=== PATIENT | female | born 1945 | race Caucasian/White ===

== ENCOUNTER 2016-07-15 09:28 | Outpatient (RCR) | payer MEDICARE, OTHER ==
[2016-04-18 10:08] LABS: INR 2.8 (0.8-1.4); PROTHROMBIN TIME PATIENT 29.1 SEC (12.2-14.7)
[2016-05-15 10:30] LABS: INR 2.7 (0.8-1.4); PROTHROMBIN TIME PATIENT 28.1 SEC (12.2-14.7)
[2016-06-13 09:55] LABS: BASOPHILS % (AUTO) 0 % (0-10); EOSINOPHILS # (AUTO) 0.2 10^3/uL (0.0-0.3); EOSINOPHILS % (AUTO) 2 % (0-10); LYMPHOCYTES # (AUTO) 0.9 X 10^3 (1.0-4.0); LYMPHOCYTES % (AUTO) 12 % (12-44); MEAN CORPUSCULAR HEMOGLOBIN 28 PG (25-34); MEAN CORPUSCULAR HGB CONC 30 G/DL (32-36); MEAN CORPUSCULAR VOLUME 92 FL (80-99); MEAN PLATELET VOLUME 9.2 FL (7.4-10.4); MONOCYTES # (AUTO) 0.6 X 10^3 (0.0-1.0); MONOCYTES % (AUTO) 8 % (0-12); NEUTROPHILS # (AUTO) 5.6 X 10^3 (1.8-7.8); NEUTROPHILS % (AUTO) 77 % (42-75); PLATELET COUNT 278 10^3/uL (130-400); RED BLOOD COUNT 3.02 10^6/uL (4.35-5.85); RED CELL DISTRIBUTION WIDTH 18.7 % (10.0-14.5); WHITE BLOOD COUNT 7.3 10^3/uL (4.3-11.0)
[2016-06-13 10:08] LABS: INR 2.9 (0.8-1.4); PROTHROMBIN TIME PATIENT 29.8 SEC (12.2-14.7)
[2016-06-13 10:16] LABS: ALBUMIN 3.5 G/DL (3.2-4.5); BILIRUBIN,TOTAL 1.1 MG/DL (0.1-1.0); CREATININE SERUM 1.25 MG/DL (0.60-1.30); POTASSIUM 4.3 MMOL/L (3.6-5.0); TOTAL PROTEIN 7.2 G/DL (6.4-8.2)
[~2016-07-15 09:28] MED LIST: ATR20T PO; CLN.1T PO; CLON-378; CYANOCOBALAMIN INJ 1000 MCG/ML (CANCER CENTER) ONE; ENXP80I.8 SC; EST.625T PO; FENO134C PO; HCTZ12.5T PO; KCL20TCR PO; LISI40TA PO; LVT.05T PO; METO-272 PO; WRF2T PO
[2016-07-15] MEDS ORDERED: CYANOCOBALAMIN INJ 1000 MCG/ML (CANCER CENTER) ONE (09:33)
[2016-07-15 10:20] LABS: INR 2.6 (0.8-1.4); PROTHROMBIN TIME PATIENT 27.8 SEC (12.2-14.7)
== END 2016-07-17 | disposition home or self-care (01) ==
LOC: ONC 09:28
PROVIDERS: ATTEND Internal Medicine Hematology & Oncology
DX: D68.59 Other primary thrombophilia (principal); E53.8 Deficiency of other specified B group vitamins; N18.3 Chronic kidney disease, stage 3 (moderate); Z79.899 Other long term (current) drug therapy; Z79.01 Long term (current) use of anticoagulants
CPT/HCPCS: 36415; 80053; 83921; 85025; 85610; 96372; 99213

== ENCOUNTER → 2016-07-19 | Outpatient (CLI) | payer MEDICARE, OTHER ==
[~2016-07-19] MED LIST changes: +AMLO10TA2 PO; +CNC1KV IJ; -CYANOCOBALAMIN INJ 1000 MCG/ML (CANCER CENTER) ONE; +DOXA1TAB2 PO; +FOLI1TAB24 PO; +FURO20TA4 PO; +LEVO50TA6 PO; +NF-MET200T PO; +POTA20TA15 PO; +TOPI100C6 PO; +WARF2TAB PO
--- OUTSIDE RECORDS SUMMARY | 2016-07-19 12:01 | XMS REPORT | Continuity of Care Document ---
Author Author [facility] Organization [facility] Address Unknown Phone Unavailable Care Team Providers Care [place] Visitor Name Role Phone PCP Unavailable Source Comments Some departments are not documenting in the electronic medical record. If you do not see the information that you expected, contact Release of Information in the Health Information Management department at [phone] for further assistance in locating additional records.[facility] Active Allergies and Adverse Reactions Not on File Current Medications Not on file Active Problems Not on file Social History Tobacco Use Types Packs/Day Years Used Date Never Assessed Plan of Care Health Maintenance Due Date Last Done Comments Hepatitis C Screening 1944 Physical (Comprehensive) 1951 Exam Pertussis Vaccine 1955 Tetanus Vaccine 1961 Breast Cancer Screening 1984 Colorectal Cancer 1994 Screening Shingles Vaccine 2004 Osteoporosis Screening 2009 Prevnar/Pneumovax (#1) 2009 Influenza Vaccine 02/22/2016 Results from Last 3 Months Not on file
--- NOTE | 2016-07-22 10:05 | ECHOCARDIOGRAPHY REPORT ---
PROCEDURE PHYSICIAN: MELISSA ESPARZA DATE OF PROCEDURE: 07/19/2016 TWO DIMENSIONAL ECHOCARDIOGRAM REPORT PRIMARY PHYSICIAN: OTHER PHYSICIAN: REFERRING PHYSICIAN: Dr. Painting ORDERING PHYSICIAN: INDICATION FOR THE PROCEDURE: Valvular heart disease. MEASUREMENTS DERIVED VALUES LV DIAMETER (LAX) NORMALS NORMALS Diastolic 4.5 (3.6-5.2) Eject. Fract. 60% (60%+/-6%) Systolic (2.3-3.9) Diastolic Vol. % Shortening (0.22-0.42) Systolic Vol. Aortic Root IVS THICKNESS Diastolic 1.3 (0.6-1.1) LVPW THICKNESS Diastolic 1.3 (0.6-1.1) LA DIAMETER Systolic 4.7 (2.1-3.7) FINDINGS: 1. Technical is good. 2. The left ventricle is normal in size with moderate left ventricular hypertrophy noted diffusely. Systolic function appeared to be normal. Estimated ejection fraction 60%. 3. The left atrium is dilated. No clot or thrombus were seen within the left atrium. 4. The right atrium and right ventricle are normal in size. No clot or thrombus were seen within the right side. 5. 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 Mild mitral regurgitation noted by color Doppler flow. Doppler across the mitral valve estimated the peak gradient of 12 mmHg, valve area of 1.6 sq cm which is mild to moderate mitral valve stenosis. 6. Aortic valve is heavily calcified. Leaflets were not well visualized. There is no significant aortic valve regurgitation. Doppler across the aortic valve estimated the peak gradient of 42 mmHg, mean gradient of 27 mmHg, calculated valve area of 1.1 sq cm which is moderate aortic valve stenosis. 7. Tricuspid valve is normal in morphology with mild tricuspid regurgitation noted by color Doppler flow. Doppler across the tricuspid valve estimated pulmonary artery pressure of 40+ right atrial pressure. 8. Pulmonic valve is functioning normally. 9. No pericardial effusion. IN CONCLUSION: 1. Moderate left ventricular hypertrophy with normal systolic function. Estimated ejection fraction 60%. 2. Left atrial dilatation. 3. Moderate aortic valve stenosis. 4. Moderate mitral stenosis. Mild to moderate mitral regurgitation. 5. Mild tricuspid regurgitation. 6. Estimated pulmonary artery pressure of 45 to 50 mmHg. Job ID: [id number] Dictated Date: 07/22/2016 08:36:40 Bottling Room Worker Date: 07/22/2016 10:01:18 / suyapa
== END ==
LOC: CARD 11:58
PROVIDERS: ATTEND Family Medicine
DX: I08.0 Rheumatic disorders of both mitral and aortic valves (principal); R01.1 Cardiac murmur, unspecified
CPT/HCPCS: 93306

== ENCOUNTER → 2016-07-31 | Outpatient (CLI) | payer MEDICARE, OTHER ==
[~2016-07-31] VITALS: Ht 160 cm; Wt 66.2 kg
[~2016-07-31] MED LIST changes: +CATHETER FLUSH 10 ML SYR IV PRN; +REGADENOSON 0.4 MG/5 ML SYR (LEXISCAN) IV ONE
--- OUTSIDE RECORDS SUMMARY | 2016-07-31 11:37 | XMS REPORT | Continuity of Care Document ---
Author Author [facility] Organization [facility] Address Unknown Phone Unavailable Care Team Providers Care Sports Official Name Role Phone PCP Unavailable Source Comments Some departments are not documenting in the electronic medical record. If you do not see the information that you expected, contact Release of Information in the Health Information Management department at [phone] for further assistance in locating additional records.[facility] Active Allergies and Adverse Reactions Not on [...]
[2016-07-31 13:01] VITALS: BP 149/70
--- NOTE | 2016-08-01 08:49 | STRESS TEST ---
PROCEDURE PHYSICIAN: MELISSA ESPARZA DATE OF PROCEDURE: 07/31/2016 LEXISCAN MYOVIEW STRESS TEST REPORT: REFERRING PHYSICIAN: Dr. Painting. INDICATION FOR THE PROCEDURE: 1. Hypertension. 2. Peripheral arterial disease. BASELINE HEART RATE: 71 BASELINE BLOOD PRESSURE: 149/70 BASELINE EKG: Sinus rhythm with no ischemic changes. IN SUMMARY: The patient was injected with 10.41 mCi of technetium 99 Myoview and the resting images were obtained. Then the patient received 0.4 mg of Lexiscan followed by 32 mCi of technetium 99 Myoview. Throughout the test, there were no EKG changes. The resting and stress images were reviewed and compared in the short axis, horizontal long axis, and vertical long axis views. Review of the images showed good showed breast attenuation affecting the quality of the images. There is questionable reversible ischemia involving the mid to apical anterior wall and anterolateral wall. SSS is 14, SDS 13. TID value 1.01. On the gated images, the left ventricle appeared to be normal size with normal contractility. Calculated ejection fraction 56%. IN CONCLUSION: 1. The patient tolerated Lexiscan well. 2. Breast attenuation affecting the quality of the images with questionable ischemia involving the mid to apical anterior wall and anterolateral wall. 3. Normal left ventricular size with normal contractility. Calculated ejection fraction 56%. Job ID: [id number] Dictated Date: 07/31/2016 16:17:07 Evp Operations Date: 08/01/2016 08:46:57 / suyapa
== END ==
LOC: CARD 11:34
PROVIDERS: ATTEND Internal Medicine Cardiovascular Disease
DX: I35.1 Nonrheumatic aortic (valve) insufficiency (principal); I35.0 Nonrheumatic aortic (valve) stenosis; I51.7 Cardiomegaly; E78.5 Hyperlipidemia, unspecified
CPT/HCPCS: 78452; 93017

== ENCOUNTER → 2016-08-05 | Outpatient (CLI) | payer MEDICARE, OTHER ==
[~2016-08-05] MED LIST changes: -CATHETER FLUSH 10 ML SYR IV PRN; -REGADENOSON 0.4 MG/5 ML SYR (LEXISCAN) IV ONE
--- OUTSIDE RECORDS SUMMARY | 2016-08-05 09:00 | XMS REPORT | Continuity of Care Document ---
Author Author [facility] Organization [facility] Address Unknown Phone Unavailable Care Team Providers Care Wax Pourer Name Role Phone PCP Unavailable Source Comments Some departments are not documenting in the electronic medical record. If you do not see the information that you expected, contact Release of Information in the Health Information Management department at [phone] for further assistance in locating additional records.[facility] Active Allergies and Adverse Reactions Not on [...]
[2016-08-05 09:29] LABS: CREATININE SERUM 1.69 MG/DL (0.60-1.30)
--- NOTE | 2016-08-07 15:59 | Physician Query-Final Dx ---
IAN MCCOY 08/07/16 1559: Clinic Account Progress/Dx Physician Query: Please specify the laterality of the carotid stenosis - rt, lt, or bilateral thank you Date of Service Aug 05, 2016 at 08:55 MELISSA ESPARZA MD 08/08/16 0917: Clinic Account Progress/Dx DIAGNOSIS: Diagnosis Left carotid stenosis IAN MCCOY Aug 07, 2016 15:59 MELISSA ESPARZA MD Aug 08, 2016 09:17
== END ==
LOC: RAD 08:55
PROVIDERS: ATTEND Internal Medicine Cardiovascular Disease
DX: I65.22 Occlusion and stenosis of left carotid artery (principal)
CPT/HCPCS: 36415; 82565; 84520

== ENCOUNTER 2016-08-07 09:10 | Day surgery (SDC) | payer MEDICARE, OTHER ==
[~2016-08-07] VITALS: Ht 160 cm; Wt 66.2 kg
[2016-08-07] VITALS (12 sets, daily range): BP systolic 133–152; BP diastolic 63–89
[~2016-08-07 09:10] MED LIST changes: -AMLO10TA2 PO; -CNC1KV IJ; -DOXA1TAB2 PO; -FOLI1TAB24 PO; -FURO20TA4 PO; -LEVO50TA6 PO; -NF-MET200T PO; -POTA20TA15 PO; -TOPI100C6 PO; -WARF2TAB PO
--- OUTSIDE RECORDS SUMMARY | 2016-08-07 09:14 | XMS REPORT | Continuity of Care Document ---
Author Author [facility] Organization [facility] Address Unknown Phone Unavailable Care Team Providers Care Vehicle And Equipment Cleaner Name Role Phone PCP Unavailable Source Comments Some departments are not documenting in the electronic medical record. If you do not see the information that you expected, contact Release of Information in the Health Information Management department at [phone] for further assistance in locating additional records.[facility] Active Allergies and Adverse Reactions Not [...]
--- OUTSIDE RECORDS SUMMARY | 2016-08-07 09:15 | XMS REPORT | Continuity of Care Document ---
Author Author [facility] Organization [facility] Address Unknown Phone Unavailable Care Team Providers Care Sausage Canner Name Role Phone PCP Unavailable Source Comments Some departments are not documenting in the electronic medical record. If you do not see the information that you expected, contact Release of Information in the Health Information Management department at [phone] for further assistance in locating additional records.[facility] Active Allergies and Adverse Reactions Not [...]
[2016-08-07] MEDS ORDERED: NS IV 1000 ML 1,000 ML ONE (09:23)
[2016-08-07] MEDS ORDERED: LIDOCAINE 1% INJ 20 ML (XYLOCAINE) VIAL ONE (09:23)
[2016-08-07] MEDS ORDERED: HEParin (CATH LAB) 2,000 ML IV ONE (09:23)
[2016-08-07] MEDS ORDERED: NS IV 1000 ML 1,000 ML IV SCH ×2 (09:26→12:20)
[2016-08-07] MEDS ORDERED: LIDOCAINE 2% VISCOUS 15 ML UDC ONE (09:48)
[2016-08-07] MEDS ORDERED: FAMOTIDINE 20MG/2ML IV (PEPCID) ONE (09:48)
[2016-08-07] MEDS ORDERED: methylPREDNISolone 125 MG (Solu-MEDROL) VIAL ONE (09:48)
[2016-08-07] MEDS ORDERED: diphenhydrAMINE 50 MG/ML INJ (BENADRYL) ONE (09:48)
[2016-08-07 09:51] LABS: MEAN PLATELET VOLUME 10.2 FL (7.4-10.4); RED BLOOD COUNT 3.2 10^6/uL (4.35-5.85); RED CELL DISTRIBUTION WIDTH 16.2 % (10.0-14.5); WHITE BLOOD COUNT 6.7 10^3/uL (4.3-11.0)
[2016-08-07 09:51] LABS: KETONES,URINE 1+ (NEGATIVE); LEUKOCYTE ESTERASE ,URINE 1+ (NEGATIVE); NITRITE,URINE NEGATIVE (NEGATIVE); PH,URINE 5 (5-9); PROTEIN,URINE 2+ (NEGATIVE); UROBILINOGEN,URINE 4 MG/DL (NORMAL)
[2016-08-07 10:02] LABS: BILIRUBIN,URINE 2+ (NEGATIVE); WBC,URINE 0-2 /HPF
[2016-08-07 10:03] LABS: INR 1.7 (0.8-1.4); PROTHROMBIN TIME PATIENT 19.8 SEC (12.2-14.7)
[2016-08-07 10:12] LABS: ALBUMIN 3.7 G/DL (3.2-4.5); BILIRUBIN,TOTAL 1.1 MG/DL (0.1-1.0); CALCIUM 9.4 MG/DL (8.5-10.1); CREATININE SERUM 1.34 MG/DL (0.60-1.30); TOTAL PROTEIN 7.8 G/DL (6.4-8.2)
[2016-08-07] MEDS ORDERED: MIDAZOLAM 5 MG/5 ML (VERSED) VIAL ONE (10:17)
[2016-08-07] MEDS ORDERED: fentaNYL INJECTION 100 MCG/2 ML AMP ONE (10:17)
[2016-08-07] MEDS ORDERED: FURO20TA4 PO (10:23)
[2016-08-07] MEDS ORDERED: AMLO10TA2 PO (10:23)
[2016-08-07] MEDS ORDERED: LEVO50TA6 PO (10:23)
[2016-08-07] MEDS ORDERED: FENO134C PO (10:23)
[2016-08-07] MEDS ORDERED: TOPI100C6 PO (10:23)
[2016-08-07] MEDS ORDERED: NF-MET200T PO (10:23)
[2016-08-07] MEDS ORDERED: DOXA1TAB2 PO (10:23)
[2016-08-07] MEDS ORDERED: WARF2TAB PO (10:23)
[2016-08-07] MEDS ORDERED: POTA20TA15 PO (10:23)
[2016-08-07] MEDS ORDERED: CNC1KV IJ (10:23)
[2016-08-07] MEDS ORDERED: FOLI1TAB24 PO (10:23)
[2016-08-07] MEDS ORDERED: FLU TRIvalent (5 YOA+) 2016-17 (AFLURIA) 0.5 ML IM ONE (10:45)
--- NOTE | 2016-08-07 10:47 | Cardiac Procedure Note-CS/ASA ---
Pre-Procedure Note Pre-Op Procedure Note H&P Reviewed The H&P was reviewed, patient examined and no changes noted. Date H&P Reviewed: Aug 07, 2016 Time H&P Reviewed: 10:47 Conscious Sedation Pre-Proced Time Reviewed: :47 ASA Class: 3 Airway Mallampati Classification: ([place] appropriate class) I. II. III, IV Lungs Heart ASA score ASA 1: a normal healthy patient ASA 2: a patient with a mild systemic disease (mid diabetes, controlled hypertension, obesity x ASA 3: a patient with a severe systemic disease that limits activity (angina , COPD, prior Myocardial infarction) ASA 4: a patient with an incapacitating disease that is a constant threat to life (CHF, renal failure) ASA 5: a moribund patient not expected to survive 24 hrs. (ruptured aneurysm) ASA 6: a declared brain patient whose organs are being harvested. For emergent operations, add the letter E after the classification Grade 3 Sedation Plan: Analgesia, Amnesia, Plan communicated to team members, Discussed options with patient/fam, Discussed risks with patient/fam Note The patient is an appropriate candidate to undergo the planned procedure, sedation, and anesthesia. The patient immediately re-assessed prior to indication. MELISSA ESPARZA MD Aug 07, 2016 10:47
[2016-08-07] MEDS ORDERED: HEParin (CATH LAB) 1,000 ML IV ONE (11:45)
[2016-08-07] MEDS ORDERED: HEParin 1000 UNIT/ML (10ML VIAL) FOR BOLUS ONE (11:57)
--- NOTE | 2016-08-07 12:22 | Discharge Inst-Post CATH ---
Discharge Inst-CATH Post Cardiac Cath D/C Inst Follow Up/Plan Appointment with Dr Ricks's office in 2-4 weeks CARDIAC CATH DISCHARGE INSTRUCTIONS *Hold Metformin for 48 hours post heart cath. ACTIVITY * Go Home directly and rest. * Limit activity of the leg (or wrist if it was used) for 7 days including aerobics, swimming, jogging, bicycling, etc. * Restrict stair-climbing for 7 days if possible, if not, climb up with your non -cath leg, then bring together on the same step. * Avoid lifting, pushing, pulling or excessive movement of the affected extremity for 7 days. * Customary sexual activity may be resumed after 2 days-use caution not to use a position that strains or causes pain to the affected extremity. * No driving for 24 hours. * NO SMOKING. * Avoid straining for bowel movements for 7 days. * Gentle walking on level ground is allowed. * Returning to work will depend on the type of procedure and the results. Your doctor will discuss this with you. CALL YOUR DOCTOR FOR ANY OF THE FOLLOWING: *If bleeding from the puncture site occurs- Apply gentle pressure to site with clean cloth and call your doctor or EMS. * If a knot or lump forms under the skin, increases in size, or causes pain. * If bruising appears to be worsening or moving further down your leg instead of disappearing. * Temperature above 101 F. CARE OF YOUR GROIN INCISION; * Bruising or purple discoloration of the skin near the puncture site is common. * You may shower only, no bathtub bathing for 5 days. Be careful to avoid slipping as your leg may feel stiff. * If a closure device was used on your femoral artery, please see the attached guide regarding care of the device and your leg. * REMOVE the dressing from your groin the next day after your procedure in the shower. CARE OF YOUR WRIST INCISION; * Bruising or purple discoloration of the skin near the puncture site is common. * You may shower. * DO NOT submerge wrist. * Remove dressing in 24 hours. MELISSA RICKS MD Aug 07, 2016 12:22
[2016-08-07] MEDS ORDERED: PATIENT MAY USE OWN MEDS, ALL PO SCH (12:30)
--- NOTE | 2016-08-08 08:46 | TEE REPORT ---
DATE OF PROCEDURE: 08/07/2016 TRANSESOPHAGEAL ECHOCARDIOGRAPHY REPORT: PROCEDURE NOTE: After explaining the procedure to the patient, the patient was placed in the left lateral decubitus position. Oropharynx was anesthetized using Cetacaine spray. Omniplane probe was introduced through the mouth to the esophagus and then to the stomach. Multiple views were obtained. At the end of the procedure Omniplane probe was removed. No complication noted. FINDINGS: 1. The left ventricle is normal in size with moderate left ventricular hypertrophy. Normal systolic function with estimated ejection fraction 60%. 2. The left atrium is dilated. Left atrial appendage is dilated. No clot or thrombus were seen. 3. Right atrium and right ventricle are prominent. No clot or thrombus were seen. 4. Mitral valve is calcified. There is mild mitral regurgitation noted by color Doppler flow. There is no significant mitral valve stenosis noted by Doppler. 5. Aortic valve is heavily calcified. Still having some opening and closing pattern, tracing the opening through on the short axis view of the aortic valve, calculated the valve area of 1.6 sq cm. Mild aortic regurgitation was noted. 6. Tricuspid valve is normal in morphology. Pulmonic valve is normal in morphology. Moderate tricuspid regurgitation noted by color Doppler flow. 7. Intra-atrial septum was evaluated using both color Doppler flow and agitated saline as a contrast media. No shunt was noted. 8. Portions of the ascending aorta, aortic arch and descending aorta were evaluated and appeared normal. IN CONCLUSION: 1. Moderate left ventricular hypertrophy with normal systolic function. Estimated ejection fraction 60%. 2. Left atrial dilatation and left atrial appendage dilatation. 3. Mild aortic valve stenosis. Mild aortic regurgitation. 4. Calcified mitral valve with no significant mitral stenosis. Mild to moderate mitral regurgitation. 5. Moderate tricuspid regurgitation. 6. Atherosclerotic plaques in the thoracic aorta. Job ID: [id number] Dictated Date: 08/07/2016 17:43:00 Electrician Underground Date: 08/08/2016 08:38:53/tblilo
--- NOTE | 2016-08-09 08:24 | CARDIAC CATHETERIZATION ---
PROCEDURE PHYSICIAN: MELISSA ESPARZA DATE OF PROCEDURE: 08/07/2016 REFERRING PHYSICIAN: Dr. Jaymie Painting Mrs. Davis is a 71-year-old lady who was noted to have valvular heart disease. She has been having recurrent chest pain, had an abnormal stress test. She was scheduled for right and left heart catheterization, possible PTCA. She was scheduled for EPIFANIO to be done at the same time. PROCEDURE NOTE: After explaining the procedure to the patient, all pros and cons were explained. All questions were answered. The patient was placed on the cardiac catheterization laboratory. Oropharynx was anesthetized using tetracaine spray. Omniplane probe was introduced through the mouth to the esophagus and then into the stomach, multiple views were obtained. At the end of the procedure Omniplane probe was removed. The patient continued to be on the cardiac catheterization laboratory. The right groin was prepped in a sterile fashion. Local anesthesia applied to right groin. 6-Mohawk sheath was placed in the right femoral artery 7-[place]awk sheath was placed in the right femoral vein. [place]-Anjel catheter was advanced to the right atrium, right ventricle, main pulmonary artery and then to the wedge position. Pressure was measured, and oxygen saturation was measured. We had simultaneous measurements of wedge pressure and left ventricular pressure using the Richar right catheter. Also, pullback from LV to aorta using the Richar right was done. I was able to intubate the right innominate artery and angiogram was done. Then the left subclavian artery and angiogram was done. I was unable to intubate the left carotid artery. Pigtail catheter was advanced to the arch and aortic arch angiogram was done. The Richar right catheter was used to access the right coronary artery and Richar left was used to access the left coronary system. Angiogram was done. At the end of the procedure, sheaths were removed. Mynx device deployed on the arterial side, manual pressure on the ventricular and the venous side No complication. EPIFANIO report will be dictated separately. FINDINGS: HEMODYNAMICS: Pulmonary artery pressure 64/30, mean of 45, pulmonary capillary wedge pressure of 23. Aortic pressure 132/63, mean of 80, LV pressure 153/13, end-diastolic pressure of 25. Right ventricular pressure is 75/19, end-diastolic pressure of 19. Oxygen saturation: PA is 59.9, RV 46.6, RA 49.4, FA was 82. Cardiac output by Ric equation is 4.56 and cardiac index by Ric equation was 3.51. Cardiac output by thermodilution 5.63. Cardiac index by thermodilution was 3.33. Through the gradient the mitral valve area was calculated to be 2.01 sq cm with a gradient of 6.6 mmHg. The area index of the mitral valve is 1.19 per sq cm square. The gradient across the aortic valve was measured to be 16 to 20 mmHg of peak to peak. ANATOMY: 1. Left main coronary artery is bifurcating to left anterior descending and left circumflex artery with no obstructive disease. 2. Left anterior descending artery is moderate in size with mild disease, nonobstructive disease. 3. Left circumflex artery is moderate in size with mild disease, nonobstructive disease. 4. Right coronary artery is moderate in size with mild disease, no obstructive disease. 5. Right innominate artery is large, tortuous with no obstructive disease. 6. Left subclavian artery has mild atherosclerotic disease, nonobstructive disease. 7. Aortic arch showed hypertensive changes. The origin of the left carotid artery was not well visualized. I was unable to perform further testing due to the underlying renal function. Total contrast used was 50 mL. CONCLUSION: 1. Mild coronary artery disease, nonobstructive disease. 2. Elevated left ventricular end diastolic pressure. 3. 20 mmHg gradient across the aortic valve with peak to peak. 4. Mild mitral valve stenosis. 5. Hypertensive changes in the aortic arch and the great neck vessels. DISCUSSION AND RECOMMENDATION: Medical therapy is recommended. No intervention is warranted at this time. Job ID: [id number] Dictated Date: 08/07/2016 13:25:48 Radiologic Technology Program Director Date: 08/09/2016 08:08:27 / essie
--- NOTE | 2016-08-09 08:27 | DISCHARGE SUMMARY ---
PROCEDURE PHYSICIAN: MELISSA ESPARZA DATE OF PROCEDURE: 08/07/2016 REFERRING PHYSICIAN: Dr. Jaymie Painting Mrs. Davis is a 71-year-old lady who was noted to have valvular heart disease. She has been having recurrent chest pain, had an abnormal stress test. She was scheduled for right and left heart catheterization, possible PTCA. She was scheduled for EPIFANIO to be done at the same time. PROCEDURE NOTE: After explaining the procedure to the patient, all pros and cons were explained. All questions were answered. The patient was placed on the cardiac catheterization laboratory. Oropharynx was anesthetized using tetracaine spray. Omniplane probe was introduced through the mouth to the esophagus and then into the stomach, multiple views were obtained. At the end of the procedure Omniplane probe was removed. The patient continued to be on the cardiac catheterization laboratory. The right groin was prepped in a sterile fashion. Local anesthesia applied to right groin. 6-German sheath was placed in the right femoral artery 7-German sheath was placed in the right femoral vein. [place]-Anjel catheter was advanced to the right atrium, right ventricle, main pulmonary artery and then to the wedge position. Pressure was measured, and oxygen saturation was measured. We had simultaneous measurements of wedge pressure and left ventricular pressure using the Richar right catheter. Also, pullback from LV to aorta using the Richar right was done. I was able to intubate the right innominate artery and angiogram was done. Then the left subclavian artery and angiogram was done. I was unable to intubate the left carotid artery. Pigtail catheter was advanced to the arch and aortic arch angiogram was done. The Richar right catheter was used to access the right coronary artery and Richar left was used to access the left coronary system. Angiogram was done. At the end of the procedure, sheaths were removed. Mynx device deployed on the arterial side, manual pressure on the ventricular and the venous side No complication. EPIFANIO report will be dictated separately. FINDINGS: HEMODYNAMICS: Pulmonary artery pressure 64/30, mean of 45, pulmonary capillary wedge pressure of 23. Aortic pressure 132/63, mean of 80, LV pressure 153/13, end-diastolic pressure of 25. Right ventricular pressure is 75/19, end-diastolic pressure of 19. Oxygen saturation: PA is 59.9, RV 46.6, RA 49.4, FA was 82. Cardiac output by Ric equation is 4.56 and cardiac index by Ric equation was 3.51. Cardiac output by thermodilution 5.63. Cardiac index by thermodilution was 3.33. Through the gradient the mitral valve area was calculated to be 2.01 sq cm with a gradient of 6.6 mmHg. The area index of the mitral valve is 1.19 per sq cm square. The gradient across the aortic valve was measured to be 16 to 20 mmHg of peak to peak. ANATOMY: 1. Left main coronary artery is bifurcating to left anterior descending and left circumflex artery with no obstructive disease. 2. Left anterior descending artery is moderate in size with mild disease, nonobstructive disease. 3. Left circumflex artery is moderate in size with mild disease, nonobstructive disease. 4. Right coronary artery is moderate in size with mild disease, no obstructive disease. 5. Right innominate artery is large, tortuous with no obstructive disease. 6. Left subclavian artery has mild atherosclerotic disease, nonobstructive disease. 7. Aortic arch showed hypertensive changes. The origin of the left carotid artery was not well visualized. I was unable to perform further testing due to the underlying renal function. Total contrast used was 50 mL. CONCLUSION: 1. Mild coronary artery disease, nonobstructive disease. 2. Elevated left ventricular end diastolic pressure. 3. 20 mmHg gradient across the aortic valve with peak to peak. 4. Mild mitral valve stenosis. 5. Hypertensive changes in the aortic arch and the great neck vessels. DISCUSSION AND RECOMMENDATION: Medical therapy is recommended. No intervention is warranted at this time. FINAL DIAGNOSIS: 1. Aortic valve stenosis. 2. Mitral valve stenosis. 3. Coronary artery disease. 4. Hypertension. 5. Hyperlipidemia. Job ID: [id number] Dictated Date: 08/07/2016 13:25:48 Record Clerk Salesperson Date: 08/09/2016 08:23:43/essie
== END 2016-08-07 17:20 | disposition home or self-care (01) ==
LOC: CATH 09:10 → SURG 13:09 → CATH 17:20
PROVIDERS: ATTEND Internal Medicine Cardiovascular Disease
DX: R07.89 Other chest pain (principal); R94.39 Abnormal result of other cardiovascular function study; I25.10 Atherosclerotic heart disease of native coronary artery without angina pectoris; I10 Essential (primary) hypertension; E78.5 Hyperlipidemia, unspecified; I35.2 Nonrheumatic aortic (valve) stenosis with insufficiency; Z86.711 Personal history of pulmonary embolism; I34.2 Nonrheumatic mitral (valve) stenosis; J44.9 Chronic obstructive pulmonary disease, unspecified; I65.23 Occlusion and stenosis of bilateral carotid arteries; Z79.01 Long term (current) use of anticoagulants; Z79.899 Other long term (current) drug therapy
CPT/HCPCS: 36222; 36415; 80053; 80061; 81000; 85027; 85610; 85730; 87081; 93460

== ENCOUNTER 2016-09-03 20:50 | Outpatient (CLI) | payer MEDICARE, OTHER ==
[~2016-09-03 20:50] MED LIST changes: +AMLO10TA2 PO; +CNC1KV IJ; +DOXA1TAB2 PO; +FOLI1TAB24 PO; +FURO20TA4 PO; +LEVO50TA6 PO; +NF-MET200T PO; +POTA20TA15 PO; +TOPI100C6 PO; +WARF2TAB PO
--- OUTSIDE RECORDS SUMMARY | 2016-09-04 07:17 | XMS REPORT | Continuity of Care Document ---
Author Author [facility] Organization [facility] Address Unknown Phone Unavailable Care Team Providers Care Fire Protection Specialist Name Role Phone PCP Unavailable Source Comments Some departments are not documenting in the electronic medical record. If you do not see the information that you expected, contact Release of Information in the Health Information Management department at [phone] for further assistance in locating additional records.[facility] Active Allergies and Adverse Reactions Not [...]
== END 2016-09-04 06:35 | disposition home or self-care (01) ==
LOC: SLEEP 20:50
PROVIDERS: ATTEND Family Medicine
DX: G47.33 Obstructive sleep apnea (adult) (pediatric) (principal); I10 Essential (primary) hypertension
CPT/HCPCS: 95810

== ENCOUNTER 2016-11-05 09:08 | Outpatient (RCR) | payer MEDICARE, OTHER ==
--- OUTSIDE RECORDS SUMMARY | 2016-08-12 09:12 | XMS REPORT | Continuity of Care Document ---
Author Author [facility] Organization [facility] Address Unknown Phone Unavailable Care Team Providers Care Finished Garment Inspector Name Role Phone PCP Unavailable Source Comments Some departments are not documenting in the electronic medical record. If you do not see the information that you expected, contact Release of Information in the Health Information Management department at [phone] for further assistance in locating additional records.[facility] Active Allergies and Adverse Reactions Not [...]
[2016-08-12 09:45] LABS: INR 2.4 (0.8-1.4); PROTHROMBIN TIME PATIENT 26.3 SEC (12.2-14.7)
[2016-09-09 10:16] LABS: INR 1.5 (0.8-1.4); PROTHROMBIN TIME PATIENT 18.2 SEC (12.2-14.7)
[2016-09-25 10:09] LABS: INR 2.4 (0.8-1.4); PROTHROMBIN TIME PATIENT 25.7 SEC (12.2-14.7)
[2016-10-07 10:15] LABS: INR 2.4 (0.8-1.4); PROTHROMBIN TIME PATIENT 25.8 SEC (12.2-14.7)
[~2016-11-05 09:08] MED LIST changes: +CYANOCOBALAMIN INJ 1000 MCG/ML (CANCER CENTER) ONE
[2016-11-05] MEDS ORDERED: CYANOCOBALAMIN INJ 1000 MCG/ML (CANCER CENTER) ONE (09:09)
[2016-11-05 09:38] LABS: INR 1.8 (0.8-1.4); PROTHROMBIN TIME PATIENT 20.3 SEC (12.2-14.7)
== END 2016-11-10 | disposition home or self-care (01) ==
LOC: ONC 09:08
PROVIDERS: ATTEND Internal Medicine Hematology & Oncology
DX: D68.59 Other primary thrombophilia (principal); E53.8 Deficiency of other specified B group vitamins; N18.3 Chronic kidney disease, stage 3 (moderate); Z79.899 Other long term (current) drug therapy; Z79.01 Long term (current) use of anticoagulants
CPT/HCPCS: 36415; 85610; 96372

== ENCOUNTER 2017-01-27 09:18 | Outpatient (RCR) | payer MEDICARE, OTHER ==
[2016-11-19 11:03] LABS: INR 2.5 (0.8-1.4); PROTHROMBIN TIME PATIENT 26.5 SEC (12.2-14.7)
[2016-12-16 13:56] LABS: BASOPHILS % (AUTO) 0 % (0-10); EOSINOPHILS # (AUTO) 0.1 10^3/uL (0.0-0.3); EOSINOPHILS % (AUTO) 3 % (0-10); LYMPHOCYTES # (AUTO) 1.1 X 10^3 (1.0-4.0); LYMPHOCYTES % (AUTO) 22 % (12-44); MEAN CORPUSCULAR HEMOGLOBIN 28 PG (25-34); MEAN CORPUSCULAR HGB CONC 31 G/DL (32-36); MEAN CORPUSCULAR VOLUME 91 FL (80-99); MEAN PLATELET VOLUME 8.8 FL (7.4-10.4); MONOCYTES # (AUTO) 0.5 X 10^3 (0.0-1.0); MONOCYTES % (AUTO) 11 % (0-12); NEUTROPHILS # (AUTO) 3.1 X 10^3 (1.8-7.8); NEUTROPHILS % (AUTO) 65 % (42-75); PLATELET COUNT 196 10^3/uL (130-400); RED BLOOD COUNT 2.96 10^6/uL (4.35-5.85); RED CELL DISTRIBUTION WIDTH 15.8 % (10.0-14.5); WHITE BLOOD COUNT 4.8 10^3/uL (4.3-11.0)
[2016-12-16 15:33] LABS: INR 1.7 (0.8-1.4); PROTHROMBIN TIME PATIENT 19.4 SEC (12.2-14.7)
[2016-12-16 15:45] LABS: ALBUMIN 3.5 GM/DL (3.2-4.5); CALCIUM 9.6 MG/DL (8.5-10.1); CREATININE SERUM 1.47 MG/DL (0.60-1.30); ICTERUS 0.9 (-100-1.9); POTASSIUM 4.2 MMOL/L (3.6-5.0)
[2016-12-30 12:17] LABS: INR 2.2 (0.8-1.4); PROTHROMBIN TIME PATIENT 24.2 SEC (12.2-14.7)
[2017-01-27] MEDS ORDERED: CYANOCOBALAMIN INJ 1000 MCG/ML (CANCER CENTER) ONE (09:24)
[2017-01-27 10:16] LABS: INR 2.5 (0.8-1.4); PROTHROMBIN TIME PATIENT 26.7 SEC (12.2-14.7)
== END 2017-02-17 | disposition home or self-care (01) ==
LOC: ONC 09:18
PROVIDERS: ATTEND Internal Medicine Hematology & Oncology
DX: D68.59 Other primary thrombophilia (principal); E53.8 Deficiency of other specified B group vitamins; N18.3 Chronic kidney disease, stage 3 (moderate); Z79.899 Other long term (current) drug therapy; Z79.01 Long term (current) use of anticoagulants
CPT/HCPCS: 36415; 80053; 82728; 83540; 84443; 85025; 85610; 96372

== ENCOUNTER 2017-02-25 09:31 | Outpatient (RCR) | payer MEDICARE, OTHER ==
[~2017-02-25 09:31] MED LIST changes: -CYANOCOBALAMIN INJ 1000 MCG/ML (CANCER CENTER) ONE
[2017-02-25] MEDS ORDERED: CYANOCOBALAMIN INJ 1000 MCG/ML (CANCER CENTER) ONE (09:48)
[2017-02-25 10:26] LABS: INR 2.5 (0.8-1.4); PROTHROMBIN TIME PATIENT 26.5 SEC (12.2-14.7)
== END 2017-03-22 | disposition still patient (30) ==
LOC: ONC 09:31
PROVIDERS: ATTEND Internal Medicine Hematology & Oncology
DX: D68.59 Other primary thrombophilia (principal); E53.8 Deficiency of other specified B group vitamins; N18.3 Chronic kidney disease, stage 3 (moderate); Z79.899 Other long term (current) drug therapy; Z79.01 Long term (current) use of anticoagulants
CPT/HCPCS: 85610; 96372

== ENCOUNTER 2017-06-04 13:35 | Outpatient (RCR) | payer MEDICARE, OTHER ==
[2017-03-25 10:37] LABS: INR 1.5 (0.8-1.4)
[2017-04-08 10:04] LABS: INR 1.9 (0.8-1.4)
[2017-04-22 09:42] LABS: INR 1.7 (0.8-1.4); PROTHROMBIN TIME PATIENT 19.8 SEC (12.2-14.7)
[2017-05-08 09:51] LABS: INR 2.2 (0.8-1.4); PROTHROMBIN TIME PATIENT 24.2 SEC (12.2-14.7)
[~2017-06-04 13:35] MED LIST changes: +CYANOCOBALAMIN INJ 1000 MCG/ML (CANCER CENTER) ONE
[2017-06-04 14:01] LABS: BASOPHILS % (AUTO) 1 % (0-10); EOSINOPHILS # (AUTO) 0.2 10^3/uL (0.0-0.3); EOSINOPHILS % (AUTO) 3 % (0-10); HEMATOCRIT 30 % (35-52); HEMOGLOBIN 9.4 G/DL (11.5-16.0); LYMPHOCYTES # (AUTO) 1.2 X 10^3 (1.0-4.0); LYMPHOCYTES % (AUTO) 21 % (12-44); MEAN CORPUSCULAR HEMOGLOBIN 29 PG (25-34); MEAN CORPUSCULAR HGB CONC 31 G/DL (32-36); MEAN CORPUSCULAR VOLUME 92 FL (80-99); MEAN PLATELET VOLUME 10.2 FL (7.4-10.4); MONOCYTES # (AUTO) 0.8 X 10^3 (0.0-1.0); MONOCYTES % (AUTO) 13 % (0-12); NEUTROPHILS # (AUTO) 3.6 X 10^3 (1.8-7.8); NEUTROPHILS % (AUTO) 63 % (42-75); PLATELET COUNT 197 10^3/uL (130-400); RED CELL DISTRIBUTION WIDTH 14.7 % (10.0-14.5); WHITE BLOOD COUNT 5.7 10^3/uL (4.3-11.0)
[2017-06-04 14:11] LABS: INR 2.1 (0.8-1.4); PROTHROMBIN TIME PATIENT 23.4 SEC (12.2-14.7)
[2017-06-04 14:13] LABS: ABSOLUTE RETIC # 70 10e9/L (24-90); RETICULOCYTE % 2.12 % (0.50-2.40)
[2017-06-04] MEDS ORDERED: CYANOCOBALAMIN INJ 1000 MCG/ML (CANCER CENTER) ONE (14:23)
[2017-06-04 14:25] LABS: ALBUMIN 3.9 GM/DL (3.2-4.5); BILIRUBIN,TOTAL 0.9 MG/DL (0.1-1.0); CALCIUM 9.6 MG/DL (8.5-10.1); CREATININE SERUM 1.26 MG/DL (0.60-1.30); POTASSIUM 3.8 MMOL/L (3.6-5.0); TOTAL PROTEIN 8.6 GM/DL (6.4-8.2)
== END 2017-06-23 | disposition home or self-care (01) ==
LOC: ONC 13:35
PROVIDERS: ATTEND Internal Medicine Hematology & Oncology
DX: D68.59 Other primary thrombophilia (principal); E53.8 Deficiency of other specified B group vitamins; N18.3 Chronic kidney disease, stage 3 (moderate); Z79.899 Other long term (current) drug therapy; Z79.01 Long term (current) use of anticoagulants
CPT/HCPCS: 36415; 80053; 82728; 83090; 83540; 83921; 84443; 85025; 85045; 85610; 96372; 99213

== ENCOUNTER → 2017-07-11 | Outpatient (CLI) | payer MEDICARE, OTHER ==
[~2017-07-11] MED LIST changes: -CYANOCOBALAMIN INJ 1000 MCG/ML (CANCER CENTER) ONE
--- NOTE | 2017-07-11 12:41 | Diagnostic Imaging Report ---
PROCEDURE: CT chest, abdomen, and pelvis without contrast. TECHNIQUE: Multiple contiguous axial images were obtained through the chest, abdomen, and pelvis without the use of intravenous contrast. INDICATION: Monoclonal gammopathy and weight loss. No prior studies are available for comparison. CT chest: FINDINGS: There are small lymph nodes in the axillae bilaterally. Mediastinal and hilar evaluation is limited without intravenous contrast. There does appear to be a prominent right paratracheal node with short axis measurement of 12 mm. The heart is significantly enlarged. There are coronary arterial calcifications present. There does appear to be a small pericardial effusion. No definite pleural fluid is identified. Patient does have bilateral breast implants with calcifications noted of the implant shells. There is biapical pleural-parenchymal scarring. A focal slightly irregular density in the right apex is seen measuring 13 mm x 5 mm, indeterminate. Smaller slightly irregular density in the left apex is noted measuring 8 mm x 5 mm. A small irregular density in the superior segment of left lower lobe is noted measuring 6 mm. The central airways are unremarkable. IMPRESSION: 1. Cardiomegaly. 2. Nonspecific mediastinal lymphadenopathy. In addition, there are indeterminate slightly irregular parenchymal densities in bilateral upper lobes and superior segment of left lower lobe. Short CT followup with repeat CT in approximately 3-4 months is recommended to confirm stability. CT abdomen and pelvis: FINDINGS: Evaluation is limited without intravenous contrast. No discrete liver mass is identified. The gallbladder is unremarkable. Pancreas and spleen are unremarkable. No adrenal mass is detected. The kidneys are unremarkable. Aorta is calcified but nonaneurysmal. No definite central retroperitoneal or mesenteric lymphadenopathy is detected. The small and large bowel loops appear to be normal caliber. There is sigmoid diverticulosis without evidence of acute diverticulitis. Bladder is unremarkable. There is no ascites. No pelvic lymphadenopathy is seen. The bony structures are unremarkable. IMPRESSION: 1. Uncomplicated diverticulosis. 2. No other significant abnormality in the abdomen or pelvis is identified. Dictated by: Dictated on workstation # [id number]
== END ==
LOC: RAD 11:24
PROVIDERS: ATTEND Nurse Practitioner Adult Health
DX: D47.2 Monoclonal gammopathy (principal); K57.90 Diverticulosis of intestine, part unspecified, without perforation or abscess without bleeding
CPT/HCPCS: 71250; 74176

== ENCOUNTER → 2017-07-22 | Outpatient (CLI) | payer MEDICARE, OTHER ==
--- NOTE | 2017-07-22 13:12 | Diagnostic Imaging Report ---
INDICATION: Monoclonal gammopathy. TIME OF EXAM: 12:39 p.m. FINDINGS: Two views of the skull are unremarkable. The cervical, thoracic, and lumbar spine are unremarkable, without evidence of osteolytic or blastic lesions. The bony pelvis is unremarkable. The long bones of the upper and lower extremities are unremarkable. IMPRESSION: No definite osteolytic or blastic lesions are detected. Dictated by: Dictated on workstation # [id number]
== END ==
LOC: RAD 12:00
PROVIDERS: ATTEND Internal Medicine Hematology & Oncology
DX: D47.2 Monoclonal gammopathy (principal)
CPT/HCPCS: 77075

== ENCOUNTER 2017-09-24 09:23 | Outpatient (RCR) | payer MEDICARE, OTHER ==
[2017-07-02 09:53] LABS: INR 1.9 (0.8-1.4); PROTHROMBIN TIME PATIENT 21.6 SEC (12.2-14.7)
[2017-07-02 10:01] LABS: ALBUMIN 3.5 GM/DL (3.2-4.5); BILIRUBIN,TOTAL 1.1 MG/DL (0.1-1.0); CREATININE SERUM 1.2 MG/DL (0.60-1.30); POTASSIUM 4.2 MMOL/L (3.6-5.0); TOTAL PROTEIN 7.8 GM/DL (6.4-8.2)
[2017-07-12 14:00] LABS: IMMUNOFIX PATH REPORT NUMBER Complete (Complete)
[2017-07-22 11:15] LABS: BASOPHILS % (AUTO) 1 % (0-10); EOSINOPHILS # (AUTO) 0.1 10^3/uL (0.0-0.3); EOSINOPHILS % (AUTO) 2 % (0-10); HEMATOCRIT 28 % (35-52); HEMOGLOBIN 8.9 G/DL (11.5-16.0); LYMPHOCYTES % (AUTO) 20 % (12-44); MEAN CORPUSCULAR HEMOGLOBIN 28 PG (25-34); MEAN CORPUSCULAR HGB CONC 31 G/DL (32-36); MEAN CORPUSCULAR VOLUME 90 FL (80-99); MEAN PLATELET VOLUME 9.3 FL (7.4-10.4); MONOCYTES # (AUTO) 0.5 X 10^3 (0.0-1.0); MONOCYTES % (AUTO) 10 % (0-12); NEUTROPHILS # (AUTO) 3.2 X 10^3 (1.8-7.8); NEUTROPHILS % (AUTO) 66 % (42-75); PLATELET COUNT 173 10^3/uL (130-400); RED BLOOD COUNT 3.13 10^6/uL (4.35-5.85); WHITE BLOOD COUNT 4.8 10^3/uL (4.3-11.0)
[2017-07-22 11:32] LABS: INR 2.6 (0.8-1.4); PROTHROMBIN TIME PATIENT 27.6 SEC (12.2-14.7)
[2017-07-22 11:41] LABS: ALBUMIN 3.7 GM/DL (3.2-4.5); BILIRUBIN,TOTAL 0.9 MG/DL (0.1-1.0); CALCIUM 9.4 MG/DL (8.5-10.1); CREATININE SERUM 1.23 MG/DL (0.60-1.30); POTASSIUM 4.2 MMOL/L (3.6-5.0); TOTAL PROTEIN 8.1 GM/DL (6.4-8.2)
[2017-07-24 10:00] LABS: ABSOLUTE RETIC # 75 10e9/L (24-90); BASOPHILS % (AUTO) 1 % (0-10); EOSINOPHILS # (AUTO) 0.1 10^3/uL (0.0-0.3); EOSINOPHILS % (AUTO) 3 % (0-10); HEMATOCRIT 29 % (35-52); HEMOGLOBIN 9.2 G/DL (11.5-16.0); LYMPHOCYTES # (AUTO) 1.1 X 10^3 (1.0-4.0); LYMPHOCYTES % (AUTO) 22 % (12-44); MEAN CORPUSCULAR HEMOGLOBIN 29 PG (25-34); MEAN CORPUSCULAR HGB CONC 31 G/DL (32-36); MEAN CORPUSCULAR VOLUME 91 FL (80-99); MEAN PLATELET VOLUME 9.8 FL (7.4-10.4); MONOCYTES # (AUTO) 0.5 X 10^3 (0.0-1.0); MONOCYTES % (AUTO) 10 % (0-12); NEUTROPHILS # (AUTO) 3.2 X 10^3 (1.8-7.8); NEUTROPHILS % (AUTO) 65 % (42-75); PLATELET COUNT 167 10^3/uL (130-400); RED BLOOD COUNT 3.23 10^6/uL (4.35-5.85); RETICULOCYTE % 2.32 % (0.50-2.40); WHITE BLOOD COUNT 4.9 10^3/uL (4.3-11.0)
[2017-07-24 12:39] LABS: ELLIPT/OVALOCYTES SLIGHT; EOSINOPHILS % (MANUAL) 2 %; LYMPHOCYTES % (MANUAL) 12 %; MONOCYTES % (MANUAL) 8 %; NEUTROPHILS % (MANUAL) 78 %; POIKILOCYTOSIS SLIGHT
[2017-07-24 12:43] LABS: ANISOCYTOSIS SLIGHT
[2017-07-30 09:54] LABS: INR 1.9 (0.8-1.4); PROTHROMBIN TIME PATIENT 21.8 SEC (12.2-14.7)
[2017-08-07 15:25] LABS: INR 2.1 (0.8-1.4); PROTHROMBIN TIME PATIENT 23.2 SEC (12.2-14.7)
[2017-08-28 09:33] LABS: INR 2.3 (0.8-1.4); PROTHROMBIN TIME PATIENT 25.2 SEC (12.2-14.7)
[~2017-09-24 09:23] MED LIST changes: +CYANOCOBALAMIN INJ 1000 MCG/ML (CANCER CENTER) ONE
[2017-09-24] MEDS ORDERED: CYANOCOBALAMIN INJ 1000 MCG/ML (CANCER CENTER) ONE (09:26)
[2017-09-24 10:13] LABS: INR 1.7 (0.8-1.4); PROTHROMBIN TIME PATIENT 19.9 SEC (12.2-14.7)
== END 2017-09-30 | disposition home or self-care (01) ==
LOC: ONC 09:23
PROVIDERS: ATTEND Internal Medicine Hematology & Oncology
DX: D68.59 Other primary thrombophilia (principal); E53.8 Deficiency of other specified B group vitamins; N18.3 Chronic kidney disease, stage 3 (moderate); D47.2 Monoclonal gammopathy; D68.61 Antiphospholipid syndrome; D63.8 Anemia in other chronic diseases classified elsewhere; Z79.899 Other long term (current) drug therapy; Z79.01 Long term (current) use of anticoagulants
CPT/HCPCS: 36415; 38222; 80053; 82570; 82784; 83883; 84155; 84156; 84165; 84166; 85007; 85025; 85027; 85045; 85610; 86334; 88184; 88185; 88237; 88264; 88280; 88305; 88311; 88313; 96372; 99213

== ENCOUNTER 2018-01-01 09:50 | Outpatient (RCR) | payer MEDICARE, OTHER ==
[2017-10-08 10:18] LABS: INR 2.4 (0.8-1.4); PROTHROMBIN TIME PATIENT 26.3 SEC (12.2-14.7)
[2017-10-23 10:15] LABS: INR 2.4 (0.8-1.4); PROTHROMBIN TIME PATIENT 25.7 SEC (12.2-14.7)
[2017-11-04 09:26] LABS: BASOPHILS % (AUTO) 1 % (0-10); EOSINOPHILS # (AUTO) 0.1 10^3/uL (0.0-0.3); EOSINOPHILS % (AUTO) 2 % (0-10); HEMATOCRIT 28 % (35-52); HEMOGLOBIN 8.8 G/DL (11.5-16.0); LYMPHOCYTES % (AUTO) 16 % (12-44); MEAN CORPUSCULAR HEMOGLOBIN 29 PG (25-34); MEAN CORPUSCULAR HGB CONC 31 G/DL (32-36); MEAN CORPUSCULAR VOLUME 92 FL (80-99); MEAN PLATELET VOLUME 9.7 FL (7.4-10.4); MONOCYTES # (AUTO) 0.8 X 10^3 (0.0-1.0); MONOCYTES % (AUTO) 12 % (0-12); NEUTROPHILS # (AUTO) 4.4 X 10^3 (1.8-7.8); NEUTROPHILS % (AUTO) 70 % (42-75); PLATELET COUNT 178 10^3/uL (130-400); RED BLOOD COUNT 3.03 10^6/uL (4.35-5.85); WHITE BLOOD COUNT 6.3 10^3/uL (4.3-11.0)
[2017-11-04 09:43] LABS: ALBUMIN 3.7 GM/DL (3.2-4.5); BILIRUBIN,TOTAL 1.1 MG/DL (0.1-1.0); CALCIUM 9.4 MG/DL (8.5-10.1); CREATININE SERUM 1.3 MG/DL (0.60-1.30); POTASSIUM 4.2 MMOL/L (3.6-5.0); TOTAL PROTEIN 7.9 GM/DL (6.4-8.2)
[2017-11-19 10:26] LABS: INR 2.6 (0.8-1.4)
[2017-12-18 10:24] LABS: INR 3.1 (0.8-1.4); PROTHROMBIN TIME PATIENT 32.3 SEC (12.2-14.7)
[2018-01-01 10:10] LABS: INR 2.2 (0.8-1.4); PROTHROMBIN TIME PATIENT 24.4 SEC (12.2-14.7)
== END 2018-01-06 | disposition home or self-care (01) ==
LOC: ONC 09:50
PROVIDERS: ATTEND Internal Medicine Hematology & Oncology
DX: D68.59 Other primary thrombophilia (principal); E53.8 Deficiency of other specified B group vitamins; N18.3 Chronic kidney disease, stage 3 (moderate); Z79.899 Other long term (current) drug therapy; Z79.01 Long term (current) use of anticoagulants
CPT/HCPCS: 36415; 80053; 82232; 82784; 83883; 85025; 85610; 96372

== ENCOUNTER 2018-03-12 09:20 | Outpatient (RCR) | payer MEDICARE, OTHER ==
[2018-01-22 09:33] LABS: INR 2.3 (0.8-1.4); PROTHROMBIN TIME PATIENT 25.1 SEC (12.2-14.7)
[2018-01-29 09:32] LABS: BASOPHILS % (AUTO) 0 % (0-10); EOSINOPHILS # (AUTO) 0.1 10^3/uL (0.0-0.3); EOSINOPHILS % (AUTO) 3 % (0-10); HEMATOCRIT 29 % (35-52); HEMOGLOBIN 9.1 G/DL (11.5-16.0); LYMPHOCYTES # (AUTO) 1.2 X 10^3 (1.0-4.0); LYMPHOCYTES % (AUTO) 26 % (12-44); MEAN CORPUSCULAR HEMOGLOBIN 29 PG (25-34); MEAN CORPUSCULAR HGB CONC 31 G/DL (32-36); MEAN CORPUSCULAR VOLUME 93 FL (80-99); MEAN PLATELET VOLUME 9.6 FL (7.4-10.4); MONOCYTES # (AUTO) 0.4 X 10^3 (0.0-1.0); MONOCYTES % (AUTO) 10 % (0-12); NEUTROPHILS # (AUTO) 2.8 X 10^3 (1.8-7.8); NEUTROPHILS % (AUTO) 62 % (42-75); PLATELET COUNT 175 10^3/uL (130-400); RED BLOOD COUNT 3.12 10^6/uL (4.35-5.85); RED CELL DISTRIBUTION WIDTH 14.1 % (10.0-14.5); WHITE BLOOD COUNT 4.5 10^3/uL (4.3-11.0)
[2018-01-29 09:52] LABS: ALBUMIN 3.8 GM/DL (3.2-4.5); BILIRUBIN,TOTAL 1.1 MG/DL (0.1-1.0); CALCIUM 9.3 MG/DL (8.5-10.1); CREATININE SERUM 1.23 MG/DL (0.60-1.30); POTASSIUM 4.5 MMOL/L (3.6-5.0); TOTAL PROTEIN 8.1 GM/DL (6.4-8.2)
[2018-02-12 11:22] LABS: INR 2.8 (0.8-1.4); PROTHROMBIN TIME PATIENT 29.3 SEC (12.2-14.7)
[~2018-03-12 09:20] MED LIST changes: -AMLO10TA2 PO; +AMLO10TA6 PO
[2018-03-12] MEDS ORDERED: CYANOCOBALAMIN INJ 1000 MCG/ML (CANCER CENTER) ONE (09:28)
[2018-03-12 09:52] LABS: INR 2.2 (0.8-1.4); PROTHROMBIN TIME PATIENT 24.5 SEC (12.2-14.7)
[2018-04-09] MEDS ORDERED: CYANOCOBALAMIN INJ 1000 MCG/ML (CANCER CENTER) ONE (09:06)
== END 2018-04-09 09:08 | disposition home or self-care (01) ==
LOC: ONC 09:20
PROVIDERS: ATTEND Internal Medicine Hematology & Oncology
DX: D68.59 Other primary thrombophilia (principal); E53.8 Deficiency of other specified B group vitamins; N18.3 Chronic kidney disease, stage 3 (moderate); Z79.899 Other long term (current) drug therapy; Z79.01 Long term (current) use of anticoagulants
CPT/HCPCS: 36415; 80053; 82232; 82784; 83540; 83550; 83883; 85025; 85610; 96372

== ENCOUNTER 2018-07-02 08:56 | Outpatient (RCR) | payer MEDICARE, OTHER ==
[2018-04-09 09:47] LABS: INR 2.9 (0.8-1.4); PROTHROMBIN TIME PATIENT 30.3 SEC (12.2-14.7)
[2018-04-23 09:46] LABS: BASOPHILS % (AUTO) 0 % (0-10); EOSINOPHILS # (AUTO) 0.1 10^3/uL (0.0-0.3); EOSINOPHILS % (AUTO) 2 % (0-10); HEMATOCRIT 28 % (35-52); HEMOGLOBIN 8.4 G/DL (11.5-16.0); LYMPHOCYTES # (AUTO) 0.9 X 10^3 (1.0-4.0); LYMPHOCYTES % (AUTO) 19 % (12-44); MEAN CORPUSCULAR HEMOGLOBIN 29 PG (25-34); MEAN CORPUSCULAR HGB CONC 31 G/DL (32-36); MEAN CORPUSCULAR VOLUME 95 FL (80-99); MEAN PLATELET VOLUME 9.2 FL (7.4-10.4); MONOCYTES # (AUTO) 0.5 X 10^3 (0.0-1.0); MONOCYTES % (AUTO) 11 % (0-12); NEUTROPHILS % (AUTO) 68 % (42-75); PLATELET COUNT 171 10^3/uL (130-400); RED CELL DISTRIBUTION WIDTH 14.8 % (10.0-14.5); WHITE BLOOD COUNT 4.5 10^3/uL (4.3-11.0)
[2018-04-23 10:08] LABS: ALBUMIN 3.7 GM/DL (3.2-4.5); BILIRUBIN,TOTAL 1.2 MG/DL (0.1-1.0); CALCIUM 9.4 MG/DL (8.5-10.1); CREATININE SERUM 1.34 MG/DL (0.60-1.30); POTASSIUM 3.9 MMOL/L (3.6-5.0); TOTAL PROTEIN 8.1 GM/DL (6.4-8.2)
[2018-05-07 09:43] LABS: INR 2.7 (0.8-1.4); PROTHROMBIN TIME PATIENT 28.7 SEC (12.2-14.7)
[2018-06-04 10:17] LABS: INR 2.6 (0.8-1.4); PROTHROMBIN TIME PATIENT 27.6 SEC (12.2-14.7)
[2018-07-02] MEDS ORDERED: CYANOCOBALAMIN INJ 1000 MCG/ML (CANCER CENTER) ONE (09:02)
[2018-07-02 09:30] LABS: INR 3.3 (0.8-1.4); PROTHROMBIN TIME PATIENT 34.1 SEC (12.2-14.7)
== END 2018-07-08 | disposition home or self-care (01) ==
LOC: ONC 08:56
PROVIDERS: ATTEND Internal Medicine Hematology & Oncology
DX: D68.59 Other primary thrombophilia (principal); E53.8 Deficiency of other specified B group vitamins; N18.3 Chronic kidney disease, stage 3 (moderate); Z79.899 Other long term (current) drug therapy; Z79.01 Long term (current) use of anticoagulants
CPT/HCPCS: 36415; 80053; 82232; 82728; 82784; 83883; 85025; 85610; 96372

== ENCOUNTER 2018-09-25 09:13 | Outpatient (RCR) | payer MEDICARE, OTHER ==
[2018-07-16 09:41] LABS: INR 2.6 (0.8-1.4); PROTHROMBIN TIME PATIENT 27.9 SEC (12.2-14.7)
[2018-07-30 09:52] LABS: BASOPHILS % (AUTO) 0 % (0-10); EOSINOPHILS # (AUTO) 0.1 10^3/uL (0.0-0.3); EOSINOPHILS % (AUTO) 2 % (0-10); HEMATOCRIT 27 % (35-52); HEMOGLOBIN 8.7 G/DL (11.5-16.0); LYMPHOCYTES # (AUTO) 0.8 X 10^3 (1.0-4.0); LYMPHOCYTES % (AUTO) 13 % (12-44); MEAN CORPUSCULAR HEMOGLOBIN 30 PG (25-34); MEAN CORPUSCULAR HGB CONC 32 G/DL (32-36); MEAN CORPUSCULAR VOLUME 96 FL (80-99); MEAN PLATELET VOLUME 9.4 FL (7.4-10.4); MONOCYTES # (AUTO) 0.6 X 10^3 (0.0-1.0); MONOCYTES % (AUTO) 10 % (0-12); NEUTROPHILS # (AUTO) 4.5 X 10^3 (1.8-7.8); NEUTROPHILS % (AUTO) 76 % (42-75); PLATELET COUNT 166 10^3/uL (130-400); RED CELL DISTRIBUTION WIDTH 14.9 % (10.0-14.5); WHITE BLOOD COUNT 5.9 10^3/uL (4.3-11.0)
[2018-07-30 10:05] LABS: INR 2.1 (0.8-1.4); PROTHROMBIN TIME PATIENT 23.3 SEC (12.2-14.7)
[2018-07-30 10:11] LABS: ALBUMIN 3.7 GM/DL (3.2-4.5); BILIRUBIN,TOTAL 1.4 MG/DL (0.1-1.0); CALCIUM 8.9 MG/DL (8.5-10.1); CREATININE SERUM 1.23 MG/DL (0.60-1.30); POTASSIUM 3.9 MMOL/L (3.6-5.0); TOTAL PROTEIN 7.8 GM/DL (6.4-8.2)
[2018-08-27 10:09] LABS: INR 2.6 (0.8-1.4); PROTHROMBIN TIME PATIENT 27.8 SEC (12.2-14.7)
[~2018-09-25 09:13] MED LIST changes: -AMLO10TA6 PO; +AMLO10TA7 PO
[2018-09-25] MEDS ORDERED: CYANOCOBALAMIN INJ 1000 MCG/ML (CANCER CENTER) ONE (09:19)
[2018-09-25 12:06] LABS: INR 2.3 (0.8-1.4); PROTHROMBIN TIME PATIENT 25.2 SEC (12.2-14.7)
== END 2018-10-14 | disposition home or self-care (01) ==
LOC: ONC 09:13
PROVIDERS: ATTEND Internal Medicine Hematology & Oncology
DX: D68.59 Other primary thrombophilia (principal); E53.8 Deficiency of other specified B group vitamins; N18.3 Chronic kidney disease, stage 3 (moderate); Z79.899 Other long term (current) drug therapy; Z79.01 Long term (current) use of anticoagulants
CPT/HCPCS: 36415; 80053; 82232; 82728; 82784; 83921; 85025; 85610; 96372

== ENCOUNTER 2019-01-14 09:14 | Outpatient (RCR) | payer MEDICARE, OTHER ==
[2018-10-22 10:39] LABS: BASOPHILS % (AUTO) 0 % (0-10); EOSINOPHILS # (AUTO) 0.1 10^3/uL (0.0-0.3); EOSINOPHILS % (AUTO) 2 % (0-10); HEMATOCRIT 27 % (35-52); HEMOGLOBIN 8.3 G/DL (11.5-16.0); LYMPHOCYTES # (AUTO) 0.8 X 10^3 (1.0-4.0); LYMPHOCYTES % (AUTO) 17 % (12-44); MEAN CORPUSCULAR HEMOGLOBIN 30 PG (25-34); MEAN CORPUSCULAR HGB CONC 31 G/DL (32-36); MEAN CORPUSCULAR VOLUME 97 FL (80-99); MEAN PLATELET VOLUME 9.6 FL (7.4-10.4); MONOCYTES # (AUTO) 0.5 X 10^3 (0.0-1.0); MONOCYTES % (AUTO) 11 % (0-12); NEUTROPHILS # (AUTO) 3.3 X 10^3 (1.8-7.8); NEUTROPHILS % (AUTO) 70 % (42-75); PLATELET COUNT 143 10^3/uL (130-400); RED CELL DISTRIBUTION WIDTH 14.8 % (10.0-14.5); WHITE BLOOD COUNT 4.7 10^3/uL (4.3-11.0)
[2018-10-22 10:58] LABS: PROTHROMBIN TIME PATIENT 32.1 SEC (12.2-14.7)
[2018-10-22 11:00] LABS: ALBUMIN 3.7 GM/DL (3.2-4.5); BILIRUBIN,TOTAL 1.3 MG/DL (0.1-1.0); CALCIUM 9.2 MG/DL (8.5-10.1); CREATININE SERUM 1.17 MG/DL (0.60-1.30); POTASSIUM 4.3 MMOL/L (3.6-5.0); TOTAL PROTEIN 7.9 GM/DL (6.4-8.2)
[2018-11-05 09:33] LABS: PROTHROMBIN TIME PATIENT 23.1 SEC (12.2-14.7)
[2018-11-19 09:33] LABS: INR 2.2 (0.8-1.4); PROTHROMBIN TIME PATIENT 25.7 SEC (12.2-14.7)
[2018-12-17 09:34] LABS: INR 2.4 (0.8-1.4); PROTHROMBIN TIME PATIENT 26.9 SEC (12.2-14.7)
[2019-01-14 09:45] LABS: BASOPHILS % (AUTO) 0 % (0-10); EOSINOPHILS # (AUTO) 0.1 10^3/uL (0.0-0.3); EOSINOPHILS % (AUTO) 1 % (0-10); HEMATOCRIT 26 % (35-52); LYMPHOCYTES # (AUTO) 0.6 X 10^3 (1.0-4.0); LYMPHOCYTES % (AUTO) 15 % (12-44); MEAN CORPUSCULAR HEMOGLOBIN 30 PG (25-34); MEAN CORPUSCULAR HGB CONC 30 G/DL (32-36); MEAN CORPUSCULAR VOLUME 100 FL (80-99); MEAN PLATELET VOLUME 9.7 FL (7.4-10.4); MONOCYTES # (AUTO) 0.6 X 10^3 (0.0-1.0); MONOCYTES % (AUTO) 13 % (0-12); NEUTROPHILS # (AUTO) 3.1 X 10^3 (1.8-7.8); NEUTROPHILS % (AUTO) 71 % (42-75); PLATELET COUNT 145 10^3/uL (130-400); RED CELL DISTRIBUTION WIDTH 15.9 % (10.0-14.5); WHITE BLOOD COUNT 4.3 10^3/uL (4.3-11.0)
[2019-01-14 10:02] LABS: ALBUMIN 3.4 GM/DL (3.2-4.5); BILIRUBIN,TOTAL 1.4 MG/DL (0.1-1.0); CALCIUM 9.1 MG/DL (8.5-10.1); CREATININE SERUM 1.3 MG/DL (0.60-1.30); POTASSIUM 3.7 MMOL/L (3.6-5.0); TOTAL PROTEIN 7.8 GM/DL (6.4-8.2)
[2019-01-14] MEDS ORDERED: CYANOCOBALAMIN INJ 1000 MCG/ML (CANCER CENTER) ONE (10:04)
[2019-01-14] MEDS ORDERED: DARBEPOETIN 10 MCG/0.4 ML ARANESP IJ SCH (10:15)
== END 2019-01-20 | disposition home or self-care (01) ==
LOC: ONC 09:14
PROVIDERS: ATTEND Internal Medicine Hematology & Oncology
DX: D68.59 Other primary thrombophilia (principal); E53.8 Deficiency of other specified B group vitamins; N18.3 Chronic kidney disease, stage 3 (moderate); Z79.899 Other long term (current) drug therapy; Z79.01 Long term (current) use of anticoagulants
CPT/HCPCS: 36415; 80053; 82232; 82728; 82784; 83883; 84155; 84165; 85025; 85610; 96372

== ENCOUNTER → 2019-04-08 | Outpatient (CLI) | payer MEDICARE, OTHER ==
[~2019-04-08] MED LIST changes: -CYANOCOBALAMIN INJ 1000 MCG/ML (CANCER CENTER) ONE
== END ==
LOC: CARD 11:39
PROVIDERS: ATTEND Nurse Practitioner Adult Health
DX: I08.3 Combined rheumatic disorders of mitral, aortic and tricuspid valves (principal); D64.9 Anemia, unspecified; D47.2 Monoclonal gammopathy; E53.8 Deficiency of other specified B group vitamins; R60.0 Localized edema
CPT/HCPCS: 93306

== ENCOUNTER 2019-04-22 09:05 | Outpatient (RCR) | payer MEDICARE, OTHER ==
[2019-01-28 09:51] LABS: BASOPHILS % (AUTO) 1 % (0-10); EOSINOPHILS % (AUTO) 1 % (0-10); HEMATOCRIT 28 % (35-52); HEMOGLOBIN 8.7 G/DL (11.5-16.0); LYMPHOCYTES # (AUTO) 0.7 X 10^3 (1.0-4.0); LYMPHOCYTES % (AUTO) 15 % (12-44); MEAN CORPUSCULAR HEMOGLOBIN 31 PG (25-34); MEAN CORPUSCULAR HGB CONC 31 G/DL (32-36); MEAN CORPUSCULAR VOLUME 100 FL (80-99); MEAN PLATELET VOLUME 10.1 FL (7.4-10.4); MONOCYTES # (AUTO) 0.4 X 10^3 (0.0-1.0); MONOCYTES % (AUTO) 9 % (0-12); NEUTROPHILS # (AUTO) 3.3 X 10^3 (1.8-7.8); NEUTROPHILS % (AUTO) 74 % (42-75); PLATELET COUNT 158 10^3/uL (130-400); RED CELL DISTRIBUTION WIDTH 15.4 % (10.0-14.5); WHITE BLOOD COUNT 4.4 10^3/uL (4.3-11.0)
[2019-01-28 10:07] LABS: PROTHROMBIN TIME PATIENT 32.4 SEC (12.2-14.7)
[2019-02-11 09:41] LABS: BASOPHILS % (AUTO) 0 % (0-10); EOSINOPHILS # (AUTO) 0.1 10^3/uL (0.0-0.3); EOSINOPHILS % (AUTO) 2 % (0-10); HEMATOCRIT 28 % (35-52); HEMOGLOBIN 8.6 G/DL (11.5-16.0); LYMPHOCYTES # (AUTO) 0.6 X 10^3 (1.0-4.0); LYMPHOCYTES % (AUTO) 16 % (12-44); MEAN CORPUSCULAR HEMOGLOBIN 31 PG (25-34); MEAN CORPUSCULAR HGB CONC 31 G/DL (32-36); MEAN CORPUSCULAR VOLUME 102 FL (80-99); MEAN PLATELET VOLUME 10.2 FL (7.4-10.4); MONOCYTES # (AUTO) 0.5 X 10^3 (0.0-1.0); MONOCYTES % (AUTO) 15 % (0-12); NEUTROPHILS # (AUTO) 2.3 X 10^3 (1.8-7.8); NEUTROPHILS % (AUTO) 67 % (42-75); PLATELET COUNT 129 10^3/uL (130-400); RED CELL DISTRIBUTION WIDTH 15.8 % (10.0-14.5); WHITE BLOOD COUNT 3.4 10^3/uL (4.3-11.0)
[2019-02-11 09:53] LABS: INR 3.1 (0.8-1.4); PROTHROMBIN TIME PATIENT 33.5 SEC (12.2-14.7)
[2019-02-25 09:28] LABS: BASOPHILS % (AUTO) 1 % (0-10); EOSINOPHILS # (AUTO) 0.1 10^3/uL (0.0-0.3); EOSINOPHILS % (AUTO) 2 % (0-10); HEMATOCRIT 30 % (35-52); HEMOGLOBIN 9.2 G/DL (11.5-16.0); LYMPHOCYTES # (AUTO) 0.7 X 10^3 (1.0-4.0); LYMPHOCYTES % (AUTO) 17 % (12-44); MEAN CORPUSCULAR HEMOGLOBIN 32 PG (25-34); MEAN CORPUSCULAR HGB CONC 31 G/DL (32-36); MEAN CORPUSCULAR VOLUME 101 FL (80-99); MEAN PLATELET VOLUME 10.3 FL (7.4-10.4); MONOCYTES # (AUTO) 0.7 X 10^3 (0.0-1.0); MONOCYTES % (AUTO) 18 % (0-12); NEUTROPHILS # (AUTO) 2.3 X 10^3 (1.8-7.8); NEUTROPHILS % (AUTO) 62 % (42-75); PLATELET COUNT 103 10^3/uL (130-400); RED CELL DISTRIBUTION WIDTH 15.7 % (10.0-14.5); WHITE BLOOD COUNT 3.8 10^3/uL (4.3-11.0)
[2019-02-25 09:44] LABS: INR 2.6 (0.8-1.4); PROTHROMBIN TIME PATIENT 28.6 SEC (12.2-14.7)
[2019-03-11 09:54] LABS: BASOPHILS % (AUTO) 1 % (0-10); EOSINOPHILS # (AUTO) 0.1 10^3/uL (0.0-0.3); EOSINOPHILS % (AUTO) 2 % (0-10); HEMATOCRIT 29 % (35-52); LYMPHOCYTES # (AUTO) 0.7 X 10^3 (1.0-4.0); LYMPHOCYTES % (AUTO) 18 % (12-44); MEAN CORPUSCULAR HEMOGLOBIN 32 PG (25-34); MEAN CORPUSCULAR HGB CONC 31 G/DL (32-36); MEAN CORPUSCULAR VOLUME 101 FL (80-99); MEAN PLATELET VOLUME 10.3 FL (7.4-10.4); MONOCYTES # (AUTO) 0.6 X 10^3 (0.0-1.0); MONOCYTES % (AUTO) 17 % (0-12); NEUTROPHILS # (AUTO) 2.2 X 10^3 (1.8-7.8); NEUTROPHILS % (AUTO) 62 % (42-75); PLATELET COUNT 104 10^3/uL (130-400); RED CELL DISTRIBUTION WIDTH 15.3 % (10.0-14.5); WHITE BLOOD COUNT 3.6 10^3/uL (4.3-11.0)
[2019-03-11 10:19] LABS: INR 2.3 (0.8-1.4); PROTHROMBIN TIME PATIENT 26.3 SEC (12.2-14.7)
[2019-03-25 09:37] LABS: BASOPHILS % (AUTO) 1 % (0-10); EOSINOPHILS # (AUTO) 0.1 10^3/uL (0.0-0.3); EOSINOPHILS % (AUTO) 2 % (0-10); HEMATOCRIT 30 % (35-52); HEMOGLOBIN 9.3 G/DL (11.5-16.0); LYMPHOCYTES # (AUTO) 0.6 X 10^3 (1.0-4.0); LYMPHOCYTES % (AUTO) 14 % (12-44); MEAN CORPUSCULAR HEMOGLOBIN 31 PG (25-34); MEAN CORPUSCULAR HGB CONC 31 G/DL (32-36); MEAN CORPUSCULAR VOLUME 101 FL (80-99); MEAN PLATELET VOLUME 10.7 FL (7.4-10.4); MONOCYTES # (AUTO) 0.5 X 10^3 (0.0-1.0); MONOCYTES % (AUTO) 13 % (0-12); NEUTROPHILS % (AUTO) 71 % (42-75); PLATELET COUNT 110 10^3/uL (130-400); RED CELL DISTRIBUTION WIDTH 15.3 % (10.0-14.5); WHITE BLOOD COUNT 4.1 10^3/uL (4.3-11.0)
[2019-04-08 10:16] LABS: BASOPHILS % (AUTO) 1 % (0-10); EOSINOPHILS # (AUTO) 0.1 10^3/uL (0.0-0.3); EOSINOPHILS % (AUTO) 1 % (0-10); HEMATOCRIT 32 % (35-52); HEMOGLOBIN 9.6 G/DL (11.5-16.0); LYMPHOCYTES # (AUTO) 0.6 X 10^3 (1.0-4.0); LYMPHOCYTES % (AUTO) 14 % (12-44); MEAN CORPUSCULAR HEMOGLOBIN 31 PG (25-34); MEAN CORPUSCULAR HGB CONC 31 G/DL (32-36); MEAN CORPUSCULAR VOLUME 102 FL (80-99); MEAN PLATELET VOLUME 10.7 FL (7.4-10.4); MONOCYTES # (AUTO) 0.5 X 10^3 (0.0-1.0); MONOCYTES % (AUTO) 12 % (0-12); NEUTROPHILS # (AUTO) 2.9 X 10^3 (1.8-7.8); NEUTROPHILS % (AUTO) 72 % (42-75); PLATELET COUNT 123 10^3/uL (130-400); RED CELL DISTRIBUTION WIDTH 15.6 % (10.0-14.5)
[2019-04-08 10:24] LABS: INR 3.2 (0.8-1.4); PROTHROMBIN TIME PATIENT 33.9 SEC (12.2-14.7)
[2019-04-08 10:32] LABS: ALBUMIN 3.3 GM/DL (3.2-4.5); BILIRUBIN,TOTAL 1.7 MG/DL (0.1-1.0); CALCIUM 8.8 MG/DL (8.5-10.1); CREATININE SERUM 1.39 MG/DL (0.60-1.30); POTASSIUM 3.6 MMOL/L (3.6-5.0); TOTAL PROTEIN 7.7 GM/DL (6.4-8.2)
[~2019-04-22 09:05] MED LIST changes: +CYANOCOBALAMIN INJ 1000 MCG/ML (CANCER CENTER) ONE; +DARBEPOETIN 10 MCG/0.4 ML ARANESP IJ SCH
[2019-04-22 09:21] LABS: BASOPHILS % (AUTO) 1 % (0-10); EOSINOPHILS # (AUTO) 0.1 10^3/uL (0.0-0.3); EOSINOPHILS % (AUTO) 2 % (0-10); HEMATOCRIT 30 % (35-52); HEMOGLOBIN 9.1 G/DL (11.5-16.0); LYMPHOCYTES # (AUTO) 0.7 X 10^3 (1.0-4.0); LYMPHOCYTES % (AUTO) 19 % (12-44); MEAN CORPUSCULAR HEMOGLOBIN 32 PG (25-34); MEAN CORPUSCULAR HGB CONC 31 G/DL (32-36); MEAN CORPUSCULAR VOLUME 103 FL (80-99); MEAN PLATELET VOLUME 10.2 FL (7.4-10.4); MONOCYTES # (AUTO) 0.5 X 10^3 (0.0-1.0); MONOCYTES % (AUTO) 13 % (0-12); NEUTROPHILS # (AUTO) 2.4 X 10^3 (1.8-7.8); NEUTROPHILS % (AUTO) 65 % (42-75); PLATELET COUNT 130 10^3/uL (130-400); RED CELL DISTRIBUTION WIDTH 15.1 % (10.0-14.5); WHITE BLOOD COUNT 3.7 10^3/uL (4.3-11.0)
[2019-04-22 09:36] LABS: INR 2.7 (0.8-1.4); PROTHROMBIN TIME PATIENT 30.2 SEC (12.2-14.7)
== END 2019-04-28 | disposition home or self-care (01) ==
LOC: ONC 09:05
PROVIDERS: ATTEND Internal Medicine Hematology & Oncology
DX: D68.59 Other primary thrombophilia (principal); E53.8 Deficiency of other specified B group vitamins; N18.3 Chronic kidney disease, stage 3 (moderate); Z79.899 Other long term (current) drug therapy; Z79.01 Long term (current) use of anticoagulants
CPT/HCPCS: 36415; 80053; 82232; 82728; 82784; 83880; 83883; 84155; 84165; 85025; 85610; 96372

== ENCOUNTER 2019-05-06 13:09 | Outpatient (RCR) | payer MEDICARE, OTHER ==
[~2019-05-06 13:09] MED LIST changes: -CYANOCOBALAMIN INJ 1000 MCG/ML (CANCER CENTER) ONE
[2019-05-06 13:23] LABS: BASOPHILS % (AUTO) 1 % (0-10); EOSINOPHILS % (AUTO) 1 % (0-10); HEMATOCRIT 30 % (35-52); HEMOGLOBIN 9.1 G/DL (11.5-16.0); LYMPHOCYTES # (AUTO) 0.6 X 10^3 (1.0-4.0); LYMPHOCYTES % (AUTO) 15 % (12-44); MEAN CORPUSCULAR HEMOGLOBIN 31 PG (25-34); MEAN CORPUSCULAR HGB CONC 30 G/DL (32-36); MEAN CORPUSCULAR VOLUME 102 FL (80-99); MEAN PLATELET VOLUME 10.3 FL (7.4-10.4); MONOCYTES # (AUTO) 0.5 X 10^3 (0.0-1.0); MONOCYTES % (AUTO) 11 % (0-12); NEUTROPHILS # (AUTO) 3.1 X 10^3 (1.8-7.8); NEUTROPHILS % (AUTO) 73 % (42-75); PLATELET COUNT 119 10^3/uL (130-400); WHITE BLOOD COUNT 4.3 10^3/uL (4.3-11.0)
[2019-05-06 13:39] LABS: ALBUMIN 3.3 GM/DL (3.2-4.5); BILIRUBIN,TOTAL 1.5 MG/DL (0.1-1.0); CALCIUM 8.8 MG/DL (8.5-10.1); CREATININE SERUM 1.52 MG/DL (0.60-1.30); POTASSIUM 4.5 MMOL/L (3.6-5.0); TOTAL PROTEIN 7.9 GM/DL (6.4-8.2)
[2019-05-06 13:51] LABS: INR 2.5 (0.8-1.4); PROTHROMBIN TIME PATIENT 28.5 SEC (12.2-14.7)
[2019-05-06] MEDS ORDERED: CYANOCOBALAMIN INJ 1000 MCG/ML (CANCER CENTER) ONE (13:59)
== END 2019-08-04 | disposition home or self-care (01) ==
LOC: ONC 13:09
PROVIDERS: ATTEND Internal Medicine Hematology & Oncology
DX: D68.59 Other primary thrombophilia (principal); E53.8 Deficiency of other specified B group vitamins; N18.3 Chronic kidney disease, stage 3 (moderate); D63.1 Anemia in chronic kidney disease; F03.90 Unspecified dementia, unspecified severity, without behavioral disturbance, psychotic disturbance, mood disturbance, and anxiety; I12.9 Hypertensive chronic kidney disease with stage 1 through stage 4 chronic kidney disease, or unspecified chronic kidney disease; E78.5 Hyperlipidemia, unspecified; Z79.899 Other long term (current) drug therapy; Z79.01 Long term (current) use of anticoagulants
CPT/HCPCS: 36415; 80053; 83615; 85025; 85610; 96372